=== PATIENT | male | born 1980 | race American Indian/Alaskan Native ===

== ENCOUNTER 2016-08-31 13:27 | Emergency (ER) | payer SELFPAY ==
[2016-08-31] MEDS ORDERED: KEPPRA 1,000 MG/NS 0.75% 100ML 1,000 MG/100 ML BAG IV ONE ×2 (14:01→14:47)
[2016-08-31 14:45] VITALS: BP 118/76
--- NOTE | 2016-08-31 15:28 | Cat Scan Report ---
FINAL REPORT EXAM: CT HEAD/BRAIN WO CON HISTORY: status post seizure with headache possible trauma TECHNIQUE: CT of the head was performed without intravenous contrast. PRIORS: CT of the head 08/27/2015. FINDINGS: The ventricles are normal in shape and position. The ventricles are nondilated. No intracranial hemorrhage, mass, mass effect, midline shift or evidence of acute ischemic infarct. The basilar cisterns are patent. Mucosal thickening of the paranasal sinuses is likely congestive or inflammatory. The extracranial soft tissues demonstrate no abnormality. The calvarium is intact. The orbits are intact. The mastoid air cells are clear. IMPRESSION: No acute intracranial abnormality.
--- NOTE | 2016-08-31 15:34 | Cat Scan Report ---
FINAL REPORT EXAM: CT CERVICAL SPINE WO CON HISTORY: neck pain TECHNIQUE: CT of the cervical spine was performed without intravenous contrast. Reconstructions were included in the coronal and sagittal planes. PRIORS: None. FINDINGS: No cervical spine fracture or subluxation. The prevertebral soft tissues are normal. No spinal canal stenosis or neural foraminal narrowing. There is mild disc space narrowing at C6-7. IMPRESSION: 1. No acute cervical spine fracture or subluxation. 2. Mild disc height loss at C6-7.
--- NOTE | 2016-08-31 15:49 | Emergency Department Report ---
HPI - General Chief Complaint: Seizure Time Seen by Provider: 08/31/16 14:24 - HPI HPI: Chief complaint: Seizure HPI: A with a history of seizures who has been noncompliant with his medications was brought in by his girlfriend after having had a seizure at home alone been calling her and then as she was bringing him to the hospital had a 42nd seizure in her car. Patient was post ictal on arrival and was given a gram of Keppra. Patient complains of a headache and neck pain. Patient is still sleepy but is alert and oriented 3. Mode of arrival: [private car] Source: [Patient] [old chart] and patient's girlfriend Began: See above Duration: See above Context: Patient was here a year ago with seizures and delirium requiring intubation and was hospitalized for several days. Patient was discharged with seizure medication but has not ever had it filled did not have a seizure again until today. Quality: Dull headache Severity: 10 out of 10 Improved with: Nothing Worsened with: Nothing Associated signs and symptoms: Denies ED Past Medical Hx - Past Medical History Previous Medical History?: Yes Hx Congestive Heart Failure: No Hx Diabetes: No Hx Seizures: Yes Hx Asthma: No Hx COPD: No Hx HIV: No Additional medical history: fracture of left tibia and wearing a cast - Surgical History Past Surgical History?: No - Social History Smoking Status: Current Every Day Smoker Substance Use Type: None - Medications Home Medications: Home Medications Medication Instructions Recorded Confirmed Last Taken Type levETIRAcetam [Keppra TAB] 1,000 mg PO Q12H #60 tablet 08/30/15 Unknown Rx Amoxicillin [Trimox CAP] 500 mg PO Q8H #15 capsule 08/31/16 Unknown Rx levETIRAcetam [Keppra TAB] 1,000 mg PO BID #60 tab 08/31/16 Unknown Rx ED Review of Systems ROS: Stated complaint: SEIZURES Other details as noted in HPI ROS Constitutional: No fever ENT: No uri symptoms, tongue laceration seizure Cardiovascular: No chest pain Respiratory: No sob or cough GI: No diarrhea nausea and vomiting 1 : No dysuria frequency or urgency, Skin: No rash Neuro: No focal weakness or numbness Psych: No depression Justin/lymph: No edema Physical Exam - Physical Exam Vital Signs: Vital Signs 08/31/16 08/31/16 13:42 14:37 Temperature 97.4 F L Pulse Rate 69 67 Respiratory 20 18 Rate Blood Pressure 120/82 Blood Pressure 118/76 [Left] O2 Sat by Pulse 100 98 Oximetry Physical Exam: GENERAL: The patient is well-developed well-nourished . Patient is sleepy but arousable to voice. HEENT: Normocephalic. Atraumatic. Extraocular motions are intact. Patient has moist mucous membranes. Pupils equal round reactive to light. TMs within normal limits. Tongue has a laceration to the left lateral aspect. NECK: Supple. No meningitic signs are noted. There is no adenopathy noted. Diffuse posterior neck tenderness without deformity or step-off. CHEST/LUNGS: Clear to auscultation. There is no respiratory distress noted. HEART/CARDIOVASCULAR: Regular. There is no tachycardia. There is no gallop rub or murmur. ABDOMEN: Abdomen is soft, nontender. Patient has normal bowel sounds. There is no abdominal distention. SKIN: There is no rash. There is no edema. There is no diaphoresis. NEURO: The patient is sleepy and oriented 3. The patient is cooperative. The patient has no focal neurologic deficits. The patient has normal speech. MUSCULOSKELETAL: Patient has mild diffuse lower tenderness. There is no limitation range of motion. ED Course Vital Signs 08/31/16 08/31/16 13:42 14:37 Temperature 97.4 F L Pulse Rate 69 67 Respiratory 20 18 Rate Blood Pressure 120/82 Blood Pressure 118/76 [Left] O2 Sat by Pulse 100 98 Oximetry - Reevaluation(s) Reevaluation #1: 08/31/16 15:54 Patient given a gram of Keppra and remained sleepy but wakes up and is oriented 3. ED Medical Decision Making - Radiology Data Radiology results: report reviewed (CT head and C-spine been normal limits.) Critical care attestation.: If time is entered above; I have spent that time in minutes in the direct care of this critically ill patient, excluding procedure time. ED Disposition Clinical Impression: Seizure, Medical non-compliance Tongue laceration Qualifiers: Encounter type: initial encounter Qualified Code(s): S01.512A - Laceration without foreign body of oral cavity, initial encounter Disposition: DISCHARGED TO HOME OR SELFCARE Is pt being admited?: No Does the pt Need Aspirin: No Condition: Stable Instructions: Epilepsy (ED) Additional Instructions: Take the amoxicillin to prevent infection of your tongue. Take the Keppra daily as prescribed. Prescriptions: Amoxicillin [Trimox CAP] 500 mg PO Q8H #15 capsule levETIRAcetam [Keppra TAB] 1,000 mg PO BID #60 tab Referrals: PRIMARY CARE,MD [Primary Care Provider] - 3-5 Days follow-up, neurologist for further treatment. [Other] - 3-5 Days Time of Disposition: 15:54
== END 2016-08-31 16:26 | disposition home or self-care (01) ==
LOC: ED 13:27
DX: S01.512A Laceration without foreign body of oral cavity, initial encounter (principal); R56.9 Unspecified convulsions; F17.200 Nicotine dependence, unspecified, uncomplicated; Z91.14 Patient's other noncompliance with medication regimen; X58.XXXA Exposure to other specified factors, initial encounter; Y93.89 Activity, other specified; Y99.8 Other external cause status; Y92.89 Other specified places as the place of occurrence of the external cause
CPT/HCPCS: 70450; 72125; 96365; 99284; J1953; 82962